=== PATIENT | female | born 1960 | race Asian ===

== ENCOUNTER 2023-03-19 21:15 | Emergency (ER) | payer MEDICARE, OTHER ==
[~2023-03-19] VITALS: Ht 170.2 cm; Wt 49.0 kg
[2023-03-19 21:17] VITALS: BP 116/47; PULSE 90; RESP 17; O2SAT 93
[2023-03-19] MEDS ORDERED: AMOX1TAB16 MT (21:30)
[2023-03-19] MEDS ORDERED: SULF1TAB48 MT (21:30)
== END 2023-03-19 23:48 ==
LOC: ER 21:15
DX: L03.213 Periorbital cellulitis (principal); F22 Delusional disorders; F20.9 Schizophrenia, unspecified; F31.9 Bipolar disorder, unspecified; I10 Essential (primary) hypertension
CPT/HCPCS: 99283; 99285